=== PATIENT | male | born 1940 | race Caucasian/White ===

== ENCOUNTER 2016-05-04 21:23 | Emergency (ER) | payer MEDICARE, OTHER ==
[~2016-05-04] VITALS: Wt 87.0 kg
[2016-05-04] MEDS ORDERED: ACETAMINOPHEN 325 MG TAB PO STA (21:47)
[2016-05-04] MEDS ORDERED: SODIUM CHLORIDE 0.9% 1L BAG IV* STA (21:47)
[2016-05-04 22:30] LABS: ADD SCAN DIFF NO
[2016-05-04 22:32] LABS: ABNORMAL IP MESSAGE 1; BASOPHILS % 0.2 % (0.0-2.0); EOSINOPHILS % 0.5 % (0.0-7.0); HEMATOCRIT 44.1 % (42.0-52.0); LYMPHOCYTES # 0.6 10^3/ul (0.8-2.9); LYMPHOCYTES % 6.8 % (15.0-51.0); MEAN CORPUSCULAR HEMOGLOBIN 28.8 pg (29.0-33.0); MEAN CORPUSCULAR VOLUME 84.6 fl (82.0-101.0); MEAN PLATELET VOLUME 11.7 fl (7.4-10.4); MONOCYTE # 0.7 10^3/ul (0.3-0.9); MONOCYTES % 7.5 % (0.0-11.0); NEUTROPHIL # 7.4 10^3/ul (1.6-7.5); NEUTROPHILS % 84.7 % (39.0-77.0); PLATELET COUNT 139 10^3/UL (140-415); RED BLOOD COUNT 5.21 10^6/ul (4.70-6.10); RED CELL DISTRIBUTION WIDTH 12.7 % (11.5-14.5); WHITE BLOOD COUNT 8.7 10^3/ul (4.8-10.8)
--- NOTE | 2016-05-04 22:39 | RADRPT ---
PROCEDURE: XR Chest. CLINICAL INDICATION: Chest pain. Possible sepsis TECHNIQUE: Portable AP supine view of the chest was obtained. COMPARISON: None available. FINDINGS: The cardiomediastinal silhouette is within upper normal limits for supine position. Mild basilar do minant interstitial changes are likely senescent and age-related, no focal infiltrate is demonstrate d. There is no evidence for pleural effusion, pneumothorax or pulmonary vascular congestion. The o sseous structures are intact with no evidence for acute abnormality. RPTAT:HJJR IMPRESSION: Mild senescent type related basilar dominant interstitial changes without evidence of lobar pneumoni a. Physician [place] Date Time Electronically viewed and signed by Marquis Rojas Physician on 05/04/2016 22:38 /
[2016-05-04 22:44] LABS: INR 1.13; PROTIME 14.5 Sec (12.2-14.2); PT RATIO 1.1
[2016-05-04 22:45] LABS: PARTIAL THROMBOPLASTIN TIME 28.4 Sec (25.0-35.0)
[2016-05-04 22:46] LABS: ALBUMIN 3.8 g/dl (3.3-4.9); POTASSIUM 4.1 mmol/L (3.5-5.1)
[2016-05-04 22:48] LABS: BILIRUBIN,INDIRECT 1.7 mg/dl (0-1.1); BILIRUBIN,TOTAL 1.7 mg/dl (0.2-1.3); CREATININE 1.01 mg/dl (0.61-1.24)
[2016-05-04 22:49] LABS: ALBUMIN/GLOBULIN RATIO 1.65; CALCIUM 9.2 mg/dl (8.4-10.2); TOTAL PROTEIN 6.1 g/dl (6.1-8.1)
[2016-05-04 22:59] LABS: TROPONIN-I 0.034 ng/ml (0.00-0.12)
[2016-05-04 23:14] LABS: ADD UMIC YES; URINE BILIRUBIN (Dip) NEGATIVE (NEGATIVE); URINE BLOOD (Dip) 2+ (NEGATIVE); URINE COLOR LT. YELLOW (YELLOW); URINE KETONES (Dip) 40 (NEGATIVE); URINE LEUKOCYTE ESTERASE (Dip) NEGATIVE (NEGATIVE); URINE NITRITE (Dip) NEGATIVE (NEGATIVE); URINE TOTAL PROTEIN (Dip) 1+ (NEGATIVE); URINE UROBILINOGEN (Dip) 1.0 E.U./dL (0.1-1.0)
[2016-05-04 23:24] LABS: SQUAMOUS EPITHELIAL CELL,UR RARE
[2016-05-05] MEDS ORDERED: PRED20TA PO (00:22)
[2016-05-05] MEDS ORDERED: AZIT250T94 PO (00:22)
[2016-05-05] MEDS ORDERED: ALBU18HF INHALATION (00:22)
[2016-05-05] MEDS ORDERED: IBUP-1542 PO (00:22)
--- NOTE | 2016-05-05 00:24 | ERD ---
ER Documentation Chief Complaint Date/Time DATE: 05/05/16 TIME: 00:23 Chief Complaint fever x 1 day, on and off cough x 2 months HPI This is a 75-year-old male comes in with fever on and off for 1 day and cough on and off for 2 weeks. Cough is mildly productive. No nausea no vomiting. No chills. Cough is mildly productive with yellow sputum. No sick contacts. No other current complaints. ROS All systems reviewed and are negative except as per history of present illness. Medications Home Meds Active Scripts Albuterol Sulfate* (Ventolin HFA*) 18 Gm Hfa.aer.ad, 2 PUFF INHALATION Q4H, #1 INHALER Prov:CANDELARIA MULLEN 05/05/16 Prednisone* (Prednisone*) 20 Mg Tab, 40 MG PO DAILY for 4 Days, TAB Prov:CANDELARIA MULLEN 05/05/16 Ibuprofen* (Motrin*) 600 Mg Tab, 600 MG PO Q6, #30 TAB Prov:CANDELARIA MULLEN 05/05/16 Azithromycin* (Zithromax*) 250 Mg Tablet, 250 MG PO .ZPACK DIRECTED, #6 TAB TAKE 500 MG (2 TABS) THE FIRST DAY THEN 250 MG (1 TAB) DAYS 2-5 Prov:CANDELARIA MULLEN 05/05/16 Allergies Allergies: Coded Allergies: No Known Drug Allergies (Verified Allergy, Unknown, 05/04/16) PMhx/Soc History of Surgery: Yes (right inguinal hernia repair) Anesthesia Reaction: No Hx Neurological Disorder: No Hx Respiratory Disorders: No Hx Cardiac Disorders: No Hx Psychiatric Problems: No Hx Miscellaneous Medical Probl: No Hx Alcohol Use: No Hx Substance Use: No Hx Tobacco Use: Yes (quit years ago) Smoking Status: Former smoker Physical Exam Vitals Vital Signs Date Time Temp Pulse Resp B/P Pulse Ox O2 Delivery O2 Flow Rate FiO2 05/04/16 22:03 102.1 05/04/16 21:41 108 26 189/105 97 Room Air 05/04/16 21:27 102.3 114 20 201/95 93 Physical Exam Const: [] Head: Atraumatic Eyes: Normal Conjunctiva ENT: Normal External Ears, Nose and Mouth. Neck: Full range of motion..~ No meningismus. Resp: Clear to auscultation bilaterally Cardio: Regular rate and rhythm, no murmurs Abd: Soft, non tender, non distended. Normal bowel sounds Skin: No petechiae or rashes Back: No midline or flank tenderness Ext: No cyanosis, or edema Neur: Awake and alert Psych: Normal Mood and Affect Result Diagram: 05/04/16221405/04/162214 Results 24 hrs Laboratory Tests Test 05/04/16 22:15 05/04/16 22:38 White Blood Count 8.710^3/ul Red Blood Count 5.2110^6/ul Hemoglobin 15.0g/dl Hematocrit 44.1% Mean Corpuscular Volume 84.6fl Mean Corpuscular Hemoglobin 28.8pg Mean Corpuscular Hemoglobin Concent 34.0g/dl Red Cell Distribution Width 12.7% Platelet Count 81567^3/UL Mean Platelet Volume 11.7fl Neutrophils % 84.7% Lymphocytes % 6.8% Monocytes % 7.5% Eosinophils % 0.5% Basophils % 0.2% Nucleated Red Blood Cells % 0.0/100WBC Neutrophils # 7.410^3/ul Lymphocytes # 0.610^3/ul Monocytes # 0.710^3/ul Eosinophils # 0.010^3/ul Basophils # 0.010^3/ul Nucleated Red Blood Cells # 0.010^3/ul Prothrombin Time 14.5Sec Prothrombin Time Ratio 1.1 INR International Normalized Ratio 1.13 Activated Partial Thromboplast Time 28.4Sec Sodium Level 138mmol/L Potassium Level 4.1mmol/L Chloride Level 102mmol/L Carbon Dioxide Level 27mmol/L Anion Gap 13 Blood Urea Nitrogen 12mg/dl Creatinine 1.01mg/dl Glucose Level 202mg/dl Lactic Acid Level 1.3mmol/L Calcium Level 9.2mg/dl Total Bilirubin 1.7mg/dl Direct Bilirubin 0.00mg/dl Indirect Bilirubin 1.7mg/dl Aspartate Amino Transf (AST/SGOT) 26IU/L Alanine Aminotransferase (ALT/SGPT) 32IU/L Alkaline Phosphatase 86IU/L Troponin I 0.034ng/ml Total Protein 6.1g/dl Albumin 3.8g/dl Globulin 2.30g/dl Albumin/Globulin Ratio 1.65 Urine Color LT. YELLOW Urine Clarity CLEAR Urine pH 6.0 Urine Specific [place] 1.025 Urine Ketones 40 Urine Nitrite NEGATIVE Urine Bilirubin NEGATIVE Urine Urobilinogen 1.0 E.U./dL Urine Leukocyte Esterase NEGATIVE Urine Microscopic RBC 2-5/HPF Urine Microscopic WBC NONE SEEN/HPF Urine Squamous Epithelial Cells RARE Urine Hemoglobin 2+ Urine Glucose 0.25%% Urine Total Protein 1+ Current Medications Medications (Trade) Dose Ordered Sig/[place]abil[place] Route PRN Reason Start Time Stop Time Status Last Admin Dose Admin Sodium Chloride (NS) 2,700 ml BOLUS OVER 2 HOURS STAT IV* 05/04/16 21:47 05/04/16 21:48 DC 05/04/16 22:20 Acetaminophen (Tylenol Tab) 650 mg ONCE STAT PO 05/04/16 21:47 05/04/16 21:48 DC 05/04/16 22:20 Procedures/MDM EKG: Rate/Rhythm: Normal Sinus Rhythm QRS, ST, T-waves: No changes consistent w/ acute ischemia Impression: No evidence of ischemia or arrhythmia Chest X-ray 1V Interpreted by me: Soft Tissue: No acute abnormalities Bones: No acute abnormalities Mediastinum/Cardiac Silhouette/Lungs: No acute abnormalities Medical decision-making: Blood cultures are currently pending. Patient however has symptoms consistent with bronchitis. No evidence of cardiac etiology. PE very unlikely given his symptomology. No pawel chest pain. Patient be discharged with azithromycin, prednisone, albuterol, Motrin. Follow-up with primary care physician tomorrow. Return for worsening symptoms. All results discussed with patient at bedside Departure Diagnosis: Primary Impression: Bronchitis Condition: Stable Patient Instructions: Bronchitis, Antiobiotic Treatment (Adult) CANDELARIA MULLEN May 05, 2016 00:24
[2016-05-05 01:15] VITALS: BP 152/92; PULSE 73; RESP 23; TEMP 98.8
== END 2016-05-05 01:15 | disposition home or self-care (01) ==
LOC: E/R 21:23
DX: J20.9 Acute bronchitis, unspecified (principal); R40.2142 Coma scale, eyes open, spontaneous, at arrival to emergency department; R40.2362 Coma scale, best motor response, obeys commands, at arrival to emergency department; R40.2252 Coma scale, best verbal response, oriented, at arrival to emergency department; R07.9 Chest pain, unspecified; Z87.891 Personal history of nicotine dependence
CPT/HCPCS: 71010; 80053; 81001; 83605; 84484; 85025; 85610; 85730; 87040; 87086; 93005; J7030; 36415; 81003